=== PATIENT | female | born 1930 | race Caucasian/White ===

== ENCOUNTER 2017-08-15 15:21 | Emergency (ER) | payer OTHER ==
[~2017-08-15 15:21] MED LIST: ALENDRONATE SOD PO; ANTIVERT12.5 MG; ASPIR 8181 MG; GLIPIZIDE2.5 M1; LISINOPRIL2.5 MG; MOTRIN800 MG PO; MYRBETRIQ25 MG; OMEPRAZOLE DR20 M1; PULMICORT180 MCG/Ac; SIMVASTATIN10 M1; TUDORZA PR400 MCG/A1 IH
[2017-08-15 18:38] LABS: PLATELET COUNT 236 x10^3mcL (130-400)
[2017-08-15 18:47] LABS: BASOPHIL % 0 % (0-2); RED CELL DISTRIBUTION WIDTH 15.3 % (11.5-14.5)
[2017-08-15 18:51] LABS: CALCIUM 8.5 mg/dL (8.5-10.1); CARBON DIOXIDE 22.6 mmol/L (21-32); CHLORIDE SERUM 99 mmol/L (98-107); CREATININE SERUM 1.1 mg/dL (0.6-1.0); GLUCOSE SERUM 108 mg/dL (74-106); POTASSIUM SERUM 4.1 mmol/L (3.5-5.1); SODIUM SERUM 132 mmol/L (136-145)
[2017-08-15 18:58] LABS: ALBUMIN 3.6 g/dL (3.4-5.0); ALKALINE PHOSPHATASE 110 U/L (46-116); ALT/SGPT 24 U/L (14-59); AST/SGOT 24 U/L (15-37); BILIRUBIN TOTAL 0.46 mg/dL (0.20-1.00); TOTAL PROTEIN, SERUM 7.1 g/dL (6.4-8.2)
[2017-08-15 20:37] VITALS: BP 117/66
== END 2017-08-15 20:37 | disposition home or self-care (01) ==
LOC: ED 15:21
PROVIDERS: Emergency Medicine
DX: R10.9 Unspecified abdominal pain (principal); E86.0 Dehydration; E11.9 Type 2 diabetes mellitus without complications; J45.909 Unspecified asthma, uncomplicated; I10 Essential (primary) hypertension; E78.00 Pure hypercholesterolemia, unspecified; Z88.2 Allergy status to sulfonamides
CPT/HCPCS: 83880; J3010; J7030; J7040; Q0092

== ENCOUNTER 2017-08-22 20:45 | Inpatient (IN) | payer OTHER ==
[~2017-08-22] VITALS: Ht 157.5 cm; Wt 82.6 kg
[~2017-08-22 20:45] MED LIST changes: -ASPIR 8181 MG; +ASPIR 8181 MG PO; -GLIPIZIDE2.5 M1; +GLIPIZIDE5 M2 PO; -MYRBETRIQ25 MG; +MYRBETRIQ25 MG PO; -OMEPRAZOLE DR20 M1; +OMEPRAZOLE MAGN20 M1 PO
[2017-08-22 20:51] VITALS: Ht 157.5 cm; Wt 82.6 kg
[2017-08-22 21:59] LABS: BASOPHIL % 0.6 % (0-2); PLATELET COUNT 232 x10^3mcL (130-400)
[2017-08-22 22:00] LABS: RED CELL DISTRIBUTION WIDTH 15.3 % (11.5-14.5)
[2017-08-22 22:03] LABS: CALCIUM 8.5 mg/dL (8.5-10.1); CARBON DIOXIDE 24.7 mmol/L (21-32); CHLORIDE SERUM 99 mmol/L (98-107); CREATININE SERUM 1.1 mg/dL (0.6-1.0); GLUCOSE SERUM 142 mg/dL (74-106); POTASSIUM SERUM 3.5 mmol/L (3.5-5.1); SODIUM SERUM 134 mmol/L (136-145)
[2017-08-22 22:09] LABS: ALBUMIN 3.1 g/dL (3.4-5.0); ALKALINE PHOSPHATASE 86 U/L (46-116); ALT/SGPT 23 U/L (14-59); AST/SGOT 26 U/L (15-37); BILIRUBIN TOTAL 0.32 mg/dL (0.20-1.00); LIPASE 701 IU/L (73-393); TOTAL PROTEIN, SERUM 6.9 g/dL (6.4-8.2)
[2017-08-23] VITALS (7 sets, daily range): BP systolic 113–166; BP diastolic 53–97
[2017-08-23 02:04] LABS: UA SPECIFIC GRAVITY <=1.005 (1.005-1.035); microscopic required? YES; urine erythrocyte 1+ (NEGATIVE)
[2017-08-23 03:05] LABS: MAGNESIUM 1.6 mg/dL (1.8-2.4); T3 TOTAL 0.85 ng/mL
[2017-08-23 03:11] LABS: CHOLESTEROL/HDL RATIO 2.7
[2017-08-23 03:15] LABS: FREE T4 1.53 ng/dL (0.76-1.46); FREE THYROXINE INDEX 4.4 ug/dL (1.4-4.5); T4(THYROXINE) 12.6 ug/dL (4.7-13.3)
[2017-08-23 04:02] LABS: CALCIUM 7.8 mg/dL (8.5-10.1); CARBON DIOXIDE 22.8 mmol/L (21-32); CHLORIDE SERUM 100 mmol/L (98-107); CREATININE SERUM 1.3 mg/dL (0.6-1.0); GLUCOSE SERUM 316 mg/dL (74-106); MAGNESIUM 1.4 mg/dL (1.8-2.4); PHOSPHOROUS 3.1 mg/dL (2.5-4.9); SODIUM SERUM 134 mmol/L (136-145)
[2017-08-23 04:09] LABS: BASOPHIL % 0.3 % (0-2); PLATELET COUNT 213 x10^3mcL (130-400); RED CELL DISTRIBUTION WIDTH 14.4 % (11.5-14.5)
[2017-08-23 04:27] LABS: POTASSIUM SERUM 2.9 mmol/L (3.5-5.1)
[2017-08-23 04:38] LABS: IRON 16 ug/dL (50-170); TOTAL IRON BINDING CAPACITY 315 ug/dL (250-450)
[2017-08-23 04:40] LABS: RED BLOOD CELLS 3.76 M/mm3 (4.10-5.10)
[2017-08-23] MEDS ORDERED: MELOXICAM15 M1 PO (07:53)
[2017-08-23] MEDS ORDERED: BANOPHEN25 MG PO (07:54)
[2017-08-23] MEDS ORDERED: COZAAR100 MG PO (07:54)
[2017-08-23] MEDS ORDERED: NOR5 PO (07:55)
[2017-08-23] MEDS ORDERED: SIMVASTATIN20 M1 PO (07:55)
[2017-08-24 05:51] VITALS: BP 127/70
[2017-08-24 06:28] LABS: PLATELET COUNT 268 x10^3mcL (130-400)
[2017-08-24 06:42] LABS: CALCIUM 8.3 mg/dL (8.5-10.1); CARBON DIOXIDE 23.8 mmol/L (21-32); CHLORIDE SERUM 107 mmol/L (98-107); GLUCOSE SERUM 184 mg/dL (74-106); MAGNESIUM 2.5 mg/dL (1.8-2.4); POTASSIUM SERUM 4.8 mmol/L (3.5-5.1); SODIUM SERUM 141 mmol/L (136-145)
[2017-08-24 06:50] LABS: RED CELL DISTRIBUTION WIDTH 15.9 % (11.5-14.5)
[2017-08-24 08:30] VITALS: BP 148/48
[2017-08-24 09:51] LABS: BAND NEUTROPHIL 16 % (0-10); BASOPHIL 0 % (0-2); MONOCYTE 3 % (0-7); SEGMENTED NEUTROPHILS 74 % (37-75)
[2017-08-24 09:52] LABS: PLATELET MORPHOLOGY LARGE PLATELET SEEN; rbc morphology (normal/abnorm) ABNORMAL (NORMAL)
[2017-08-24 12:30] VITALS: BP 139/60
[2017-08-24 15:30] LABS: BASOPHIL % 0.3 % (0-2); PLATELET COUNT 247 x10^3mcL (130-400)
[2017-08-24 15:36] LABS: RED CELL DISTRIBUTION WIDTH 15.9 % (11.5-14.5)
[2017-08-24 18:06] VITALS: BP 133/62
[2017-08-24 21:30] VITALS: BP 129/66
[2017-08-25 05:30] VITALS: BP 143/62
[2017-08-25 06:27] LABS: PLATELET COUNT 244 x10^3mcL (130-400)
[2017-08-25 06:30] LABS: BASOPHIL % 0 % (0-2); RED CELL DISTRIBUTION WIDTH 16.4 % (11.5-14.5)
[2017-08-25 06:57] LABS: CALCIUM 8.1 mg/dL (8.5-10.1); CARBON DIOXIDE 27.7 mmol/L (21-32); CHLORIDE SERUM 106 mmol/L (98-107); CREATININE SERUM 1.1 mg/dL (0.6-1.0); GLUCOSE SERUM 197 mg/dL (74-106); MAGNESIUM 2.3 mg/dL (1.8-2.4); SODIUM SERUM 140 mmol/L (136-145)
[2017-08-25 09:35] VITALS: BP 140/61
[2017-08-25] MEDS ORDERED: ALENDRONATE SOD70 M2 PO (11:16)
[2017-08-25 13:05] VITALS: BP 141/63
[2017-08-25 17:25] VITALS: BP 154/66
[2017-08-25 22:10] VITALS: BP 170/67
[2017-08-26 05:40] VITALS: BP 157/67
[2017-08-26 06:23] LABS: BASOPHIL % 0.2 % (0-2); PLATELET COUNT 218 x10^3mcL (130-400)
[2017-08-26 06:40] LABS: CALCIUM 8.3 mg/dL (8.5-10.1); CARBON DIOXIDE 26.1 mmol/L (21-32); CHLORIDE SERUM 107 mmol/L (98-107); CREATININE SERUM 1.1 mg/dL (0.6-1.0); GLUCOSE SERUM 68 mg/dL (74-106); PHOSPHOROUS 3.9 mg/dL (2.5-4.9); SODIUM SERUM 141 mmol/L (136-145)
[2017-08-26 06:42] LABS: RED CELL DISTRIBUTION WIDTH 16.3 % (11.5-14.5)
[2017-08-26 10:25] VITALS: BP 143/66
[2017-08-26] MEDS ORDERED: ROBITUSSIN PEA PO (12:38)
[2017-08-26] MEDS ORDERED: LEVOFLOXACIN750 M1 PO (12:41)
[2017-08-26] MEDS ORDERED: COLACE100 MG PO (12:41)
[2017-08-26] MEDS ORDERED: BD LACTINEX1.4 MG PO (12:41)
[2017-08-26 12:54] VITALS: BP 143/65
[2017-08-26 13:08] VITALS: BP 143/65
== END 2017-08-26 15:00 | disposition home health service (06) | DRG 177 ==
LOC: ED 20:45 → DU 23:42
PROVIDERS: Emergency Medicine; Family Medicine; Student in an Organized Health Care Education/Training Program
DX: J69.0 Pneumonitis due to inhalation of food and vomit (principal); K85.90 Acute pancreatitis without necrosis or infection, unspecified; N17.0 Acute kidney failure with tubular necrosis; J44.1 Chronic obstructive pulmonary disease with (acute) exacerbation; E87.1 Hypo-osmolality and hyponatremia; E44.0 Moderate protein-calorie malnutrition; J09.X2 Influenza due to identified novel influenza A virus with other respiratory manifestations; E86.0 Dehydration; E11.65 Type 2 diabetes mellitus with hyperglycemia; F41.9 Anxiety disorder, unspecified; E87.6 Hypokalemia; D50.9 Iron deficiency anemia, unspecified; Z66 Do not resuscitate; Z68.30 Body mass index [BMI] 30.0-30.9, adult
CPT/HCPCS: 83880; 84439; 87804; 97110-GP; 97116-GP; 97530-GP; J1956; J2405; J2920; J2930; J3475; J3480; J3490; J7030; J7613; J7620; J7644; Q0092; Q0163

== ENCOUNTER 2018-01-03 22:17 | Inpatient (IN) | payer OTHER ==
[~2018-01-03] VITALS: Ht 157.5 cm; Wt 84.5 kg
[~2018-01-03 22:17] MED LIST changes: +ALENDRONATE SOD70 M2 PO; +BANOPHEN25 MG PO; +BD LACTINEX1.4 MG PO; +COLACE100 MG PO; +COZAAR100 MG PO; +LEVOFLOXACIN750 M1 PO; +MELOXICAM15 M1 PO; +NOR5 PO; +ROBITUSSIN PEA PO; +SIMVASTATIN20 M1 PO
[2018-01-03 23:17] LABS: BASOPHIL % 0.5 % (0-2); PLATELET COUNT 259 x10^3mcL (130-400); RED CELL DISTRIBUTION WIDTH 15.6 % (11.5-14.5)
[2018-01-03 23:30] LABS: CALCIUM 8.9 mg/dL (8.5-10.1); CARBON DIOXIDE 25.2 mmol/L (21-32); CHLORIDE SERUM 104 mmol/L (98-107); CREATININE SERUM 1.2 mg/dL (0.6-1.0); GLUCOSE SERUM 155 mg/dL (74-106); POTASSIUM SERUM 3.9 mmol/L (3.5-5.1); SODIUM SERUM 138 mmol/L (136-145)
[2018-01-03 23:37] LABS: ALBUMIN 3.6 g/dL (3.4-5.0); ALKALINE PHOSPHATASE 117 U/L (46-116); ALT/SGPT 23 U/L (14-59); AST/SGOT 23 U/L (15-37); BILIRUBIN TOTAL 0.3 mg/dL (0.20-1.00); C REACTIVE PROTEIN 2.4 mg/dL (<=0.9); TOTAL PROTEIN, SERUM 7.2 g/dL (6.4-8.2)
[2018-01-03 23:42] LABS: CK-MB < 0.5 ng/mL (0-3.6); CREATINE KINASE 97 U/L (26-192)
[2018-01-03 23:43] LABS: FREE T4 1.28 ng/dL (0.76-1.46); FREE THYROXINE INDEX 4.2 ug/dL (1.4-4.5); T4(THYROXINE) 12.6 ug/dL (4.7-13.3)
[2018-01-03 23:46] LABS: UA SPECIFIC GRAVITY 1.025 (1.005-1.035); microscopic required? YES; urine erythrocyte TRACE (NEGATIVE)
[2018-01-04] VITALS (7 sets, daily range): BP systolic 115–167; BP diastolic 56–76
[2018-01-04 00:02] LABS: ERYTHROCYTE SED RATE 39 mm/hr (0-30)
[2018-01-04 00:13] LABS: T3 TOTAL 1.08 ng/mL
[2018-01-04] MEDS ORDERED: AMLODIPINE BES2.5 M1 (01:23)
[2018-01-04] MEDS ORDERED: GLIPIZIDE2.5 M1 (01:23)
[2018-01-04] MEDS ORDERED: CREON1 ECC (01:23)
[2018-01-04] MEDS ORDERED: MYRBETRIQ25 MG (01:23)
[2018-01-04] MEDS ORDERED: GOOD SENSE OMEP20 MG (01:23)
[2018-01-04] MEDS ORDERED: MELOXICAM7.5 M1 (01:23)
[2018-01-04] MEDS ORDERED: LOSARTAN POTASS25 M1 (01:24)
[2018-01-04] MEDS ORDERED: SIMVASTATIN10 M1 (01:24)
[2018-01-04 02:26] LABS: CHOLESTEROL/HDL RATIO 3.3; MAGNESIUM 1.8 mg/dL (1.8-2.4); PHOSPHOROUS 4.1 mg/dL (2.5-4.9)
[2018-01-04 04:21] LABS: IRON 35 ug/dL (50-170); TOTAL IRON BINDING CAPACITY 349 ug/dL (250-450)
[2018-01-04 06:42] LABS: RED BLOOD CELLS 3.96 M/mm3 (4.10-5.10)
[2018-01-05 05:55] LABS: BASOPHIL % 0.6 % (0-2); PLATELET COUNT 243 x10^3mcL (130-400)
[2018-01-05 06:02] VITALS: BP 157/57
[2018-01-05 06:15] LABS: CALCIUM 8.8 mg/dL (8.5-10.1); CHLORIDE SERUM 106 mmol/L (98-107); GLUCOSE SERUM 126 mg/dL (74-106); POTASSIUM SERUM 3.8 mmol/L (3.5-5.1); SODIUM SERUM 138 mmol/L (136-145)
[2018-01-05 06:20] LABS: RED CELL DISTRIBUTION WIDTH 15.7 % (11.5-14.5)
[2018-01-05 08:10] VITALS: BP 172/77
[2018-01-05] MEDS ORDERED: LAC PO (13:30)
[2018-01-05] MEDS ORDERED: CIPROFLOXACIN500 MG PO (13:30)
[2018-01-05] MEDS ORDERED: FERROUS SULFAT325 M2 PO (13:32)
[2018-01-05 14:38] VITALS: BP 162/76; BP 172/77
[2018-01-05 17:24] VITALS: BP 130/70
== END 2018-01-05 19:02 | disposition home or self-care (01) | DRG 872 ==
LOC: ED 22:17 → MU 01-04 00:53 → DU 01-04 00:53 → MU 01-04 11:40
PROVIDERS: Family Medicine; Specialist
DX: A41.9 Sepsis, unspecified organism (principal); N39.0 Urinary tract infection, site not specified; I10 Essential (primary) hypertension; R65.20 Severe sepsis without septic shock; E11.65 Type 2 diabetes mellitus with hyperglycemia; E78.00 Pure hypercholesterolemia, unspecified; D64.9 Anemia, unspecified; Z88.2 Allergy status to sulfonamides; Z80.9 Family history of malignant neoplasm, unspecified; N28.89 Other specified disorders of kidney and ureter
CPT/HCPCS: 36600; 82962; 83880; 84439; J0696; J7030; Q0092; Q0163

== ENCOUNTER 2018-01-14 11:04 | Emergency (ER) | payer OTHER ==
[~2018-01-14] VITALS: Ht 157.5 cm; Wt 79.8 kg
[~2018-01-14 11:04] MED LIST changes: +AMLODIPINE BES2.5 M1; +CIPROFLOXACIN500 MG PO; +CREON1 ECC; +FERROUS SULFAT325 M2 PO; +GLIPIZIDE2.5 M1; +GOOD SENSE OMEP20 MG; +LAC PO; +LOSARTAN POTASS25 M1; +MELOXICAM7.5 M1; +MYRBETRIQ25 MG
[2018-01-14 11:13] VITALS: Ht 157.5 cm; Wt 79.8 kg
[2018-01-14 12:16] VITALS: BP 135/86
== END 2018-01-14 12:16 | disposition home or self-care (01) ==
LOC: ED 11:04
DX: N39.0 Urinary tract infection, site not specified (principal); I10 Essential (primary) hypertension; E11.9 Type 2 diabetes mellitus without complications; J45.909 Unspecified asthma, uncomplicated; Z88.2 Allergy status to sulfonamides

== ENCOUNTER 2018-03-13 12:02 | Inpatient (IN) | payer OTHER ==
[~2018-03-13] VITALS: Ht 160 cm; Wt 78.1 kg
[2018-03-13 13:00] LABS: BASOPHIL % 0.8 % (0-2); PLATELET COUNT 263 x10^3mcL (130-400)
[2018-03-13 13:16] LABS: CALCIUM 8.3 mg/dL (8.5-10.1); CARBON DIOXIDE 25.1 mmol/L (21-32); CHLORIDE SERUM 102 mmol/L (98-107); CREATININE SERUM 1.2 mg/dL (0.6-1.0); GLUCOSE SERUM 154 mg/dL (74-106); POTASSIUM SERUM 3.9 mmol/L (3.5-5.1); SODIUM SERUM 137 mmol/L (136-145)
[2018-03-13 13:20] LABS: ALBUMIN 3.5 g/dL (3.4-5.0); ALKALINE PHOSPHATASE 113 U/L (46-116); ALT/SGPT 19 U/L (14-59); AST/SGOT 22 U/L (15-37); BILIRUBIN TOTAL 0.4 mg/dL (0.20-1.00); TOTAL PROTEIN, SERUM 7.5 g/dL (6.4-8.2)
[2018-03-13 15:31] VITALS: BP 125/61
[2018-03-13 15:37] VITALS: Ht 160 cm; Wt 78.1 kg
[2018-03-13 16:27] LABS: T3 TOTAL 1.2 ng/mL
[2018-03-13 16:43] LABS: FREE THYROXINE INDEX 3.6 ug/dL (1.4-4.5); T4(THYROXINE) 11.1 ug/dL (4.7-13.3)
[2018-03-13 17:09] LABS: FREE T4 1.22 ng/dL (0.76-1.46)
[2018-03-13 17:54] VITALS: BP 133/63
[2018-03-13 21:19] VITALS: BP 152/76
[2018-03-14 05:34] VITALS: BP 126/55
[2018-03-14 06:49] LABS: BASOPHIL % 0.5 % (0-2); PLATELET COUNT 232 x10^3mcL (130-400)
[2018-03-14 06:55] LABS: RED CELL DISTRIBUTION WIDTH 15.9 % (11.5-14.5)
[2018-03-14 07:01] LABS: CALCIUM 8.3 mg/dL (8.5-10.1); CARBON DIOXIDE 26.6 mmol/L (21-32); CHLORIDE SERUM 104 mmol/L (98-107); CREATININE SERUM 1.1 mg/dL (0.6-1.0); GLUCOSE SERUM 103 mg/dL (74-106); SODIUM SERUM 139 mmol/L (136-145)
[2018-03-14 08:10] VITALS: BP 127/63
[2018-03-14 12:13] VITALS: BP 129/64
[2018-03-14 16:28] VITALS: BP 127/61
[2018-03-14 16:29] VITALS: BP 126/69
[2018-03-14 21:08] VITALS: BP 148/60
[2018-03-15 04:55] VITALS: BP 134/62
[2018-03-15 07:21] LABS: CALCIUM 8.9 mg/dL (8.5-10.1); CARBON DIOXIDE 26.2 mmol/L (21-32); CHLORIDE SERUM 104 mmol/L (98-107); CREATININE SERUM 1.2 mg/dL (0.6-1.0); GLUCOSE SERUM 112 mg/dL (74-106); POTASSIUM SERUM 3.9 mmol/L (3.5-5.1); SODIUM SERUM 138 mmol/L (136-145)
[2018-03-15 07:38] LABS: BASOPHIL % 0.8 % (0-2); PLATELET COUNT 221 x10^3mcL (130-400)
[2018-03-15 07:56] LABS: RED CELL DISTRIBUTION WIDTH 14.7 % (11.5-14.5)
[2018-03-15 09:12] VITALS: BP 120/54
[2018-03-15] MEDS ORDERED: METOPROLOL TART25 M1 PO (13:31)
[2018-03-15 15:15] VITALS: BP 126/60
== END 2018-03-15 16:12 | disposition home or self-care (01) | DRG 308 ==
LOC: ED 12:02 → DU 13:48
PROVIDERS: Emergency Medicine; Family Medicine; Internal Medicine
DX: I49.3 Ventricular premature depolarization (principal); N17.0 Acute kidney failure with tubular necrosis; I13.0 Hypertensive heart and chronic kidney disease with heart failure and stage 1 through stage 4 chronic kidney disease, or unspecified chronic kidney disease; I50.30 Unspecified diastolic (congestive) heart failure; R07.89 Other chest pain; E11.65 Type 2 diabetes mellitus with hyperglycemia; E11.22 Type 2 diabetes mellitus with diabetic chronic kidney disease; N18.9 Chronic kidney disease, unspecified; D50.9 Iron deficiency anemia, unspecified; E78.00 Pure hypercholesterolemia, unspecified; J45.909 Unspecified asthma, uncomplicated; E78.5 Hyperlipidemia, unspecified; Z79.82 Long term (current) use of aspirin; Z68.30 Body mass index [BMI] 30.0-30.9, adult
CPT/HCPCS: 83880; 84439; J1644; Q0092; Q0163